=== PATIENT | female | born 1990 | race American Indian/Alaskan Native ===

== ENCOUNTER 2016-12-23 16:37 | Emergency (ER) | payer MEDICAID ==
[2016-12-23 16:38] VITALS: BMI 26.6
[2016-12-23 17:03] VITALS: RESP 18; TEMP 97.6; O2SAT 99
--- NOTE | 2016-12-23 19:33 | ED PDOC ---
Arrival/HPI - General Chief Complaint: Abdominal Pain Time Seen by Provider: 12/23/16 16:49 - History of Present Illness Narrative History of Present Illness (Text): 12/23/16 19:49 Patient c/o menstrual cramps starting this morning. Patient sts today is the first day of her menstrual period. Patient sts she usually has menstrual cramps , but today her pain is worse then before. She took 1 tab of OTC Ibuprofen earlier today without help. Patient denies fever/nausea/vomiting/diarrhea/ dysuria. Past Medical History - Provider Review Nursing Documentation Reviewed: Yes - Past History Past History: No Previous - Psychiatric Hx Substance Use: No - Anesthesia Hx Anesthesia: No Hx Anesthesia Reactions: No Hx Malignant Hyperthermia: No Family/Social History - Physician Review Nursing Documentation Reviewed: Yes Family/Social History: Unknown Family HX Smoking Status: Never Smoked Hx Alcohol Use: No Hx Substance Use: No Allergies/Home Meds Allergies/Adverse Reactions: Allergies amoxicillin Allergy (Verified 08/06/15 18:44) RASH methsuximide Allergy (Verified 08/06/15 18:44) RASH Review of Systems - Physician Review All systems were reviewed & negative as marked: Yes - Review of Systems Gastrointestinal: absent: Diarrhea, Nausea, Vomiting Genitourinary Female: Other (pelvic cramps) Physical Exam Vital Signs Reviewed: Yes Vital Signs Temp Pulse Resp BP Pulse Ox 12/23/16 19:47 73 18 120/71 99 12/23/16 17:59 69 18 115/69 99 12/23/16 16:46 97.6 F 74 18 117/72 99 Appearance: Positive for: Well-Appearing, Non-Toxic, Uncomfortable Pain Distress: None Mental Status: Positive for: Alert and Oriented X 3 - Systems Exam Head: Present: Atraumatic, Normocephalic Respiratory/Chest: Present: Clear to Auscultation. No: Accessory Muscle Use Cardiovascular: Present: Regular Rate and Rhythm Abdomen: Present: Tenderness (suprapubic). No: Distention, Peritoneal Signs, Rebound, Guarding Back: Present: Normal Inspection. No: CVA Tenderness Upper Extremity: Present: Normal ROM Lower Extremity: Present: Normal Inspection, Normal ROM Psychiatric: Present: Alert, Oriented x 3 Medical Decision Making ED Course and Treatment: 12/23/16 19:54 UCG negative in ED, Toradol IM ordered. On re-evaluation she feels better and is stable to be d/c home with OBGYN follow up. - Lab Interpretations Lab Results: Lab Results 12/23/16 18:45: Urine HCG, Qual Negative - Medication Orders Current Medication Orders: Discontinued Medications Acetaminophen (Tylenol 325mg Tab) 650 mg PO STAT STA Stop: 12/23/16 18:44 Ketorolac Tromethamine (Toradol) Confirm Administered Dose 60 mg .ROUTE .STK- MED ONE Stop: 12/23/16 18:59 Last Admin: 12/23/16 19:45 Dose: Ketorolac Tromethamine (Toradol) 60 mg IM STAT STA Stop: 12/23/16 18:59 Last Admin: 12/23/16 19:00 Dose: 60 mg Disposition/Present on Arrival - Present on Arrival Any Indicators Present on Arrival: No History of DVT/PE: No History of Uncontrolled Diabetes: No Urinary Catheter: No History of Decub. Ulcer: No History Surgical Site Infection Following: None - Disposition Have Diagnosis and Disposition been Completed?: Yes Diagnosis: Menstrual cramps Disposition: HOME/ ROUTINE Disposition Time: 19:31 Patient Plan: Discharge Condition: STABLE Discharge Instructions (ExitCare): Dysmenorrhea (ED) Additional Instructions: Follow up with OBGYN within 2-3 days. Return to ED if feel worse. Prescriptions: Acetaminophen/Pyrilamine/Caff [Midol Complete Caplet] 1 each PO .Q4-6 H #30 tablet Referrals: Kely Zarate MD [Primary Care Provider] - Follow up with primary Forms: [employer] (Setswana)
[2016-12-23 19:49] VITALS: BP 120/71; PULSE 73
== END 2016-12-23 19:45 | disposition home or self-care (01) ==
LOC: ED 16:37
DX: N94.6 Dysmenorrhea, unspecified (principal)
CPT/HCPCS: 84703; 96372; 99283; J1885

== ENCOUNTER 2016-12-30 22:43 | Emergency (ER) | payer MEDICAID ==
[2016-12-30 22:58] VITALS: BMI 27.8
--- NOTE | 2016-12-30 23:29 | ED PDOC ---
Arrival/HPI <Braxton Serra - Last Filed: 12/31/16 00:55> - General Historian: Patient - History of Present Illness Time/Duration: 24 hours Symptom Onset: Sudden Symptom Course: Unchanged Quality: Unable to Describe Severity Level: 8 <RaysaStanton hamlin - Last Filed: 12/31/16 02:00> - General Chief Complaint: Female Genitourinary Time Seen by Provider: 12/30/16 22:56 - History of Present Illness Narrative History of Present Illness (Text): 12/30/16 23:26 This is a 26 year old female with no significant PMHx complaining of dysuria. Patient states that this began earlier today. Patient is unable to describe the pain but states that it is 8/10 and only experienced with urination. Patient also complaining of urinary frequency, hematuria, and suprapubic tenderness. Patient denies vaginal discharge or bleeding. LMP was last week. Patient denies fevers, chills, chest pain, dyspnea, abdominal pain, n/v/c/d. (Stanton Styles) Past Medical History - Past History Past History: No Previous - Psychiatric Hx Substance Use: No - Anesthesia Hx Anesthesia: No Hx Anesthesia Reactions: No Hx Malignant Hyperthermia: No <Stanton Styles - Last Filed: 12/31/16 02:00> Family/Social History Family/Social History: No Known Family HX Smoking Status: Never Smoked Hx Alcohol Use: No Hx Substance Use: No <Stanton Styles - Last Filed: 12/31/16 02:00> Allergies/Home Meds <PonceBraxton - Last Filed: 12/31/16 00:55> <Stanton Styles - Last Filed: 12/31/16 02:00> Allergies/Adverse Reactions: Allergies amoxicillin Allergy (Verified 08/06/15 18:44) RASH methsuximide Allergy (Verified 08/06/15 18:44) RASH Review of Systems - Review of Systems Constitutional: Normal. absent: Fevers Eyes: Normal ENT: Normal Respiratory: Normal. absent: SOB Cardiovascular: Normal. absent: Chest Pain Gastrointestinal: Normal. absent: Abdominal Pain, Constipation, Diarrhea, Nausea, Vomiting Genitourinary Female: Dysuria, Frequency, Hematuria, Other (suprapubic tenderness) Musculoskeletal: Normal Skin: Normal Neurological: Normal Endocrine: Normal Hemo/Lymphatic: Normal <García Stylesa Deb - Last Filed: 12/31/16 02:00> Physical Exam Vital Signs Reviewed: Yes Temperature: Afebrile Blood Pressure: Normal Pulse: Tachycardic Respiratory Rate: Normal Appearance: Positive for: Well-Appearing Pain Distress: None Mental Status: Positive for: Alert and Oriented X 3 - Systems Exam Head: Present: Atraumatic, Normocephalic Pupils: Present: PERRL Extroacular Muscles: Present: EOMI Conjunctiva: Present: Normal Mouth: Present: Moist Mucous Membranes Neck: Present: Normal Range of Motion Respiratory/Chest: Present: Clear to Auscultation, Good Air Exchange. No: Accessory Muscle Use Cardiovascular: Present: Regular Rate and Rhythm, Normal S1, S2 Abdomen: Present: Normal Bowel Sounds, Other (suprapubic tenderness). No: Tenderness, Distention Back: Present: Normal Inspection. No: CVA Tenderness, Midline Tenderness Upper Extremity: Present: Normal Inspection, NORMAL PULSES. No: Edema Lower Extremity: Present: Normal Inspection, NORMAL PULSES. No: Edema, CALF TENDERNESS Neurological: Present: GCS=15, CN II-XII Intact Skin: Present: Warm, Dry, Normal Color. No: Rashes Psychiatric: Present: Alert, Oriented x 3 <Stanton Styles - Last Filed: 12/31/16 02:00> Vital Signs Temp Pulse Resp BP Pulse Ox 12/31/16 01:33 79 17 139/77 99 12/31/16 00:56 98.5 F 91 H 17 139/77 100 12/30/16 22:58 98.1 F 91 H 16 132/87 97 Medical Decision Making - Lab Interpretations I have reviewed the lab results: Yes <Braxton Serra - Last Filed: 12/31/16 00:55> <Stanton Styles - Last Filed: 12/31/16 02:00> ED Course and Treatment: Impression: Pt seen and evaluated with medical assistant cardiology. Pt presented complaining of dysuria today with urinary frequency and hematuria. Aware and agrees with HPI, clinical findings, plan, and management. Plan: -- Labs -- UA -- Reassess and disposition (Braxton Serra) 12/30/16 23:33 CBC, CMP, UA, Urine 12/31/16 01:56 Patient discharged with prescriptions for Cipro and Pyridium for her UTI and instructed to follow up with primary doctor. (Stanton Styles) - Lab Interpretations Lab Results: 12/30/16 23:53 12/30/16 23:53 Lab Results 12/30/16 23:53: Sodium 140, Potassium 4.2, Chloride 104, Carbon Dioxide 24, Anion Gap 16, BUN 9, Creatinine 0.8, Est GFR ( Amer) > 60, Est GFR (Non- Af Amer) > 60, Random Glucose 91, Calcium 9.1, Total Bilirubin 0.5, AST 35, ALT 28, Alkaline Phosphatase 90, Total Protein 7.5, Albumin 4.3, Globulin 3.3, Albumin/Globulin Ratio 1.3 12/30/16 23:53: WBC 11.7 H D, RBC 4.50, Hgb 13.7, Hct 39.6, MCV 88.0, MCH 30.4, MCHC 34.6, RDW 11.9, Plt Count 235, MPV 11.2 H, Gran % 72.1 H, Lymph % (Auto) 20.2 L, [place] % (Auto) 7.1 H, Eos % (Auto) 0.4 L, Baso % (Auto) 0.2, Gran # 8.41 H, Lymph # 2.4, [place] # 0.8 H, Eos # 0.1, Baso # 0.02 12/30/16 23:27: Urine Color Brown, Urine Appearance Cloudy, Urine pH 6.5, Ur Specific [place] 1.025, Urine Protein >=300 H, Urine Glucose (UA) Negative, Urine Ketones 15 H, Urine Blood Large H, Urine Nitrate Positive H, Urine Bilirubin Large H, Urine Urobilinogen 2.0 H, Ur Leukocyte Esterase Moderate H, Urine RBC 2 - 5, Urine WBC Tntc, Ur Epithelial Cells 0 - 2, Urine Bacteria Mod - Medication Orders Current Medication Orders: Discontinued Medications Ciprofloxacin (Cipro) 500 mg PO ONCE STA PRN Reason: Protocol Stop: 12/31/16 00:38 Last Admin: 12/31/16 00:56 Dose: 500 mg Phenazopyridine HCl (Pyridium) 200 mg PO STAT STA Stop: 12/31/16 00:38 Last Admin: 12/31/16 00:56 Dose: 200 mg Disposition/Present on Arrival <Braxton Serra - Last Filed: 12/31/16 00:55> - Present on Arrival Any Indicators Present on Arrival: No History of DVT/PE: No History of Uncontrolled Diabetes: No Urinary Catheter: No History of Decub. Ulcer: No History Surgical Site Infection Following: None - Disposition Have Diagnosis and Disposition been Completed?: Yes Disposition Time: 01:15 <Stanton Styles - Last Filed: 12/31/16 02:00> - Disposition Diagnosis: Urinary tract infection Disposition: HOME/ ROUTINE Condition: STABLE Additional Instructions: Take the antibiotic Ciprofloxacin 500 mg by mouth twice a day for 7 days. Take Pyridium 200 mg by mouth three times a day for 2 days. Please follow up with your primary doctor within 1 week of discharge. Return to the emergency room if new or worsening symptoms. Prescriptions: Ciprofloxacin [Cipro] 500 mg PO BID #14 tab Phenazopyridine HCl [Pyridium] 200 mg PO TID #6 tablet Referrals: Kely Zarate MD [Primary Care Provider] - Follow up with primary Forms: [employer] (Turkish)
[2016-12-30 23:36] LABS: PH,URINE 6.5 (4.7-8.0); URINE BILIRUBIN LARGE (NEGATIVE); URINE BLOOD LARGE (NEGATIVE); URINE GLUCOSE (UA) NEGATIVE (NEGATIVE); URINE KETONE 15 mg/dL (NEGATIVE); URINE LEUKOCYTE ESTERASE MODERATE Leu/uL (NEGATIVE); URINE PROTEIN >=300 mg/dL (<30 mg/dL)
[2016-12-30 23:38] LABS: URINE APPEARANCE CLOUDY (CLEAR); URINE COLOR BROWN (YELLOW)
[2016-12-30 23:47] LABS: URINE EPITHELIAL CELLS 0 - 2 /hpf (0-5); URINE WBC TNTC /hpf (0-6)
[2016-12-30 23:48] LABS: URINE BACTERIA MOD (NEG)
[2016-12-31 00:26] LABS: BASO # 0.02 K/mm3 (0.0-2.0); BASO % 0.2 % (0.0-3.0); EOS # 0.1 (0.0-0.7); EOS % 0.4 % (1.5-5.0); GRAN # 8.41 (1.4-6.5); GRAN % 72.1 % (50.0-68.0); HEMATOCRIT 39.6 % (36.0-48.0); LYMPH # 2.4 (1.2-3.4); LYMPH % 20.2 % (22.0-35.0); MEAN CORPUSCULAR HEMOGLOBIN 30.4 pg (25.0-35.0); MEAN CORPUSCULAR HGB CONC 34.6 g/dl (31.0-37.0); MEAN PLATELET VOLUME 11.2 fl (7.0-11.0); MONO # 0.8 (0.1-0.6); MONO % 7.1 % (1.0-6.0); RED CELL DISTRIBUTION WIDTH 11.9 % (11.5-14.5); WHITE BLOOD COUNT 11.7 10^3/ul (4.5-11.0)
[2016-12-31 00:44] LABS: ALB/GLOB RATIO 1.3 (1.1-1.8); ALKALINE PHOSPHATASE 90 U/L (38-126); ALT/SGPT 28 U/L (7-56); AST/SGOT 35 U/L (14-36); BILIRUBIN,TOTAL 0.5 mg/dL (0.2-1.3); BLOOD UREA NITROGEN 9 mg/dL (7-21); CALCIUM 9.1 mg/dL (8.4-10.5); CARBON DIOXIDE 24 mmol/L (21-33); CHLORIDE 104 mmol/L (98-107); GFR AFRICAN-AMERICAN > 60; GLUCOSE,RANDOM 91 mg/dL (70-110); POTASSIUM 4.2 mmol/L (3.6-5.0); SODIUM 140 mmol/L (132-148); TOTAL PROTEIN 7.5 g/dL (5.8-8.3)
[2016-12-31 00:57] VITALS: BP 139/77; RESP 17; TEMP 98.5
[2016-12-31 01:34] VITALS: PULSE 79; O2SAT 99
== END 2016-12-31 01:34 | disposition home or self-care (01) ==
LOC: ED 22:43
DX: N39.0 Urinary tract infection, site not specified (principal)

== ENCOUNTER 2018-02-05 22:36 | Emergency (ER) | payer SELFPAY ==
[2018-02-05 22:37] VITALS: BMI 27.8
[2018-02-05 23:00] VITALS: RESP 17
--- NOTE | 2018-02-05 23:19 | ED PDOC ---
Arrival/HPI - General Chief Complaint: ENT Problem Time Seen by Provider: 02/05/18 22:43 Historian: Patient - History of Present Illness Narrative History of Present Illness (Text): 02/05/18 23:16 27 year old female, with no significant past medical history, presents to the emergency department complaining of sore throat discomfort associated with occasional dry cough for the past couple of days. Patient states she has some di scomfort to her chest when coughing. Patient denies any fever, chills, shortness of breath, nausea, vomiting, diarrhea, urinary symptoms, back pain, neck pain, headache, dizziness, or any other complaints. PMD: oCrinna Zarate Time/Duration: Other (couple days) Symptom Onset: Gradual Symptom Course: Unchanged Activities at Onset: Light Context: Home Past Medical History - Provider Review Nursing Documentation Reviewed: Yes - Past History Past History: No Previous - Infectious Disease Hx of Infectious Diseases: None - Cardiac Hx Cardiac Disorders: No - Psychiatric Hx Substance Use: No - Anesthesia Hx Anesthesia: No Hx Anesthesia Reactions: No Hx Malignant Hyperthermia: No Family/Social History - Physician Review Nursing Documentation Reviewed: Yes Family/Social History: No Known Family HX Smoking Status: Never Smoked Hx Alcohol Use: No Hx Substance Use: No Allergies/Home Meds Allergies/Adverse Reactions: Allergies amoxicillin Allergy (Verified 02/05/18 22:45) RASH methsuximide Allergy (Verified 02/05/18 22:45) RASH Review of Systems - Physician Review All systems were reviewed & negative as marked: Yes - Review of Systems Constitutional: absent: Fevers, Other (chills) ENT: Sore Throat Respiratory: Cough (with chest discomfrot when coughing). absent: SOB Gastrointestinal: absent: Diarrhea, Nausea, Vomiting Genitourinary Female: absent: Dysuria, Frequency, Hematuria Musculoskeletal: absent: Back Pain, Neck Pain Neurological: absent: Headache, Dizziness Physical Exam Vital Signs Reviewed: Yes Vital Signs Temp Pulse Resp BP Pulse Ox 02/05/18 22:59 98.2 F 80 17 138/97 H 98 Temperature: Afebrile Blood Pressure: Normal Pulse: Regular Respiratory Rate: Normal Appearance: Positive for: Well-Appearing, Non-Toxic, Comfortable Pain Distress: None Mental Status: Positive for: Alert and Oriented X 3 - Systems Exam Head: Present: Atraumatic, Normocephalic Pupils: Present: PERRL Extroacular Muscles: Present: EOMI Conjunctiva: Present: Normal Mouth: Present: Moist Mucous Membranes Pharnyx: Present: ERYTHEMA (Posterior pharnyx ). No: EXUDATE Neck: Present: Normal Range of Motion Respiratory/Chest: Present: Clear to Auscultation, Good Air Exchange. No: Respiratory Distress, Accessory Muscle Use Cardiovascular: Present: Regular Rate and Rhythm, Normal S1, S2. No: Murmurs Abdomen: No: Tenderness, Distention, Peritoneal Signs Back: Present: Normal Inspection Upper Extremity: Present: Normal Inspection. No: Cyanosis, Edema Lower Extremity: Present: Normal Inspection. No: Edema Neurological: Present: GCS=15, CN II-XII Intact, Speech Normal Skin: Present: Warm, Dry, Normal Color. No: Rashes Psychiatric: Present: Alert, Oriented x 3, Normal Insight, Normal Concentration Medical Decision Making ED Course and Treatment: 02/05/18 23:18 Impression: 27 year old female presents complaining of sore throat discomfort associated with occasional dry cough and discomfort to chest when coughing for the past couple of days. Plan: -- Chest X-ray -- Reassess and disposition Progress Notes: 02/05/18 23:31 CXR Impression: As read by me, no acute process. 02/05/18 23:49 On re-evaluation, patient is in no acute distress. I have discussed the results and plan with the patient, who expresses understanding. Patient in agreement with plan to be discharged home. Patient is stable for discharge. Patient was instructed to follow up with physician or return if symptoms worsen or new concerning symptoms arise. - RAD Interpretation Radiology Orders: 02/05/18 23:01 CHEST TWO VIEWS (PA/LAT) [RAD] Stat - Scribe Statement The provider has reviewed the documentation as recorded by the Scribe Isak Clayton Provider Scribe Attestation: All medical record entries made by the Scribe were at my direction and personally dictated by me. I have reviewed the chart and agree that the record accurately reflects my personal performance of the history, physical exam, medical decision making, and the department course for this patient. I have also personally directed, reviewed, and agree with the discharge instructions and disposition. Disposition/Present on Arrival - Present on Arrival Any Indicators Present on Arrival: No History of DVT/PE: No History of Uncontrolled Diabetes: No Urinary Catheter: No History of Decub. Ulcer: No History Surgical Site Infection Following: None - Disposition Have Diagnosis and Disposition been Completed?: Yes Diagnosis: Pharyngitis, Bronchitis Disposition: HOME/ ROUTINE Disposition Time: 23:34 Patient Plan: Discharge Patient Problems: Current Active Problems Problem Status Onset Bronchitis Acute Pharyngitis Acute Condition: GOOD Discharge Instructions (ExitCare): Acute Bronchitis, Adult (DC), Sore Throat, Adult (DC) Additional Instructions: Drink plenty of fluids/take meds as prescribed/follow up with your doctor this week Prescriptions: Levofloxacin [Levaquin] 500 mg PO DAILY #7 tablet Benzonatate [Tessalon Perles] 100 mg PO TID PRN #21 sgl PRN Reason: Cough Referrals: Kely Zarate MD [Primary Care Provider] - Follow up with primary Forms: [employer] (Portuguese)
[2018-02-05 23:50] VITALS: BP 132/89; PULSE 78; TEMP 98.1; O2SAT 99
--- NOTE | 2018-02-06 10:33 | RAD ---
Date of service: 02/05/2018 HISTORY: Cough COMPARISON: No prior. TECHNIQUE: Chest PA and lateral FINDINGS: LUNGS: No active pulmonary disease. PLEURA: No significant pleural effusion identified. No pneumothorax apparent. CARDIOVASCULAR: No atherosclerotic calcification present Normal. OSSEOUS STRUCTURES: No significant abnormalities. VISUALIZED UPPER ABDOMEN: Normal. OTHER FINDINGS: None. IMPRESSION: No active disease.
== END 2018-02-05 23:49 | disposition home or self-care (01) ==
LOC: ED 22:36
DX: J02.9 Acute pharyngitis, unspecified (principal); J40 Bronchitis, not specified as acute or chronic

== ENCOUNTER 2018-09-18 17:06 | Emergency (ER) | payer MEDICAID ==
[2018-09-18 17:49] VITALS: TEMP 97.9; BMI 32.9
[2018-09-18] MEDS ORDERED: Sodium Chloride 0.9% 1,000 ML IV STA (17:49)
[2018-09-18 19:09] LABS: URINE BILIRUBIN NEGATIVE (NEGATIVE); URINE BLOOD NEGATIVE (NEGATIVE); URINE GLUCOSE (UA) NEGATIVE (NEGATIVE); URINE LEUKOCYTE ESTERASE NEGATIVE Leu/uL (NEGATIVE); URINE PROTEIN NEGATIVE mg/dL (<30 mg/dL); URINE UROBILINOGEN 0.2 E.U./dL (<1 E.U./dL)
[2018-09-18 19:11] LABS: BASO # 0.01 K/mm3 (0.0-2.0); BASO % 0.2 % (0.0-3.0); EOS % 0.6 % (1.5-5.0); HEMOGLOBIN 14.4 g/dL (12.0-16.0); LYMPH # 2.3 (1.2-3.4); LYMPH % 35.7 % (22.0-35.0); MEAN CELL VOLUME 88.6 fl (80.0-105.0); MEAN CORPUSCULAR HEMOGLOBIN 29.4 pg (25.0-35.0); MEAN CORPUSCULAR HGB CONC 33.2 g/dl (31.0-37.0); MEAN PLATELET VOLUME 11.7 fl (7.0-11.0); MONO # 0.4 (0.1-0.6); MONO % 6.4 % (1.0-6.0); RBC 4.9 10^6/uL (3.5-6.1); RED CELL DISTRIBUTION WIDTH 12.6 % (11.5-14.5); WHITE BLOOD COUNT 6.4 10^3/uL (4.5-11.0)
[2018-09-18 19:13] LABS: URINE APPEARANCE CLEAR (CLEAR); URINE COLOR LIGHT YELLOW (YELLOW)
[2018-09-18 19:14] LABS: HCG,QUALITATIVE URINE NEGATIVE (NEGATIVE)
--- NOTE | 2018-09-18 19:15 | ED PDOC ---
Arrival/HPI <Rcihie Avelar A - Last Filed: 09/18/18 22:31> - General Historian: Patient - History of Present Illness Narrative History of Present Illness (Text): 27 y/o female with no significant PMH presents to the ED c/o abdominal pain, nausea, vomiting, and lightheadedness x 1 day. Lightheadedness is worst with changes in position, but occasionally is described as room spinning. Admits to 4 episodes of nonbloody, nonbilious emesis today, last in the triage room. Abdominal pain is dull, generalized, worst epigastric. No recent travel or sick contacts. Denies fever, chills, diarrhea, constipation, hematemesis, cough, congestion, vision changes, headache, ear pain, urinary symptoms, back pain, SOB, chest pain, vaginal bleeding or discharge, or any other associated symptoms. <Dunia Moore - Last Filed: 09/19/18 20:51> - General Chief Complaint: Abdominal Pain Time Seen by Provider: 09/18/18 17:22 Past Medical History - Provider Review Nursing Documentation Reviewed: Yes - Past History Past History: No Previous - Infectious Disease Hx of Infectious Diseases: None - Cardiac Hx Cardiac Disorders: No - Psychiatric Hx Substance Use: No - Anesthesia Hx Anesthesia: No Hx Anesthesia Reactions: No Hx Malignant Hyperthermia: No <Dunia Moore - Last Filed: 09/19/18 20:51> Family/Social History - Physician Review Nursing Documentation Reviewed: Yes Family/Social History: No Known Family HX Smoking Status: Never Smoked Hx Alcohol Use: No Hx Substance Use: No <Dunia Moore - Last Filed: 09/19/18 20:51> Allergies/Home Meds <Richie Avelar A - Last Filed: 09/18/18 22:31> <Dunia Moore - Last Filed: 09/19/18 20:51> Allergies/Adverse Reactions: Allergies amoxicillin Allergy (Verified 09/18/18 17:48) RASH methsuximide Allergy (Verified 09/18/18 17:48) RASH Review of Systems - Review of Systems Constitutional: Normal. absent: Fevers Eyes: Normal. absent: Vision Changes ENT: Normal. absent: Sore Throat, Sinus Congestion Respiratory: Normal. absent: SOB, Cough Cardiovascular: Normal. absent: Chest Pain, Palpitations, Syncope Gastrointestinal: Abdominal Pain, Nausea, Vomiting. absent: Stool Changes, Constipation, Diarrhea, Hematemesis Genitourinary Female: Normal. absent: Dysuria, Frequency, Vaginal Bleeding Musculoskeletal: Normal. absent: Back Pain, Neck Pain Skin: Normal. absent: Rash Neurological: Dizziness. absent: Headache <Dunia Moore - Last Filed: 09/19/18 20:51> Physical Exam Vital Signs Temp Pulse Resp BP Pulse Ox 09/18/18 20:00 71 16 116/70 99 09/18/18 17:07 97.9 F 95 H 18 132/96 H 96 <Diru,Happiness A - Last Filed: 09/18/18 22:31> Vital Signs Reviewed: Yes Vital Signs Temp Pulse Resp BP Pulse Ox 09/18/18 17:07 97.9 F 95 H 18 132/96 H 96 Temperature: Afebrile Blood Pressure: Hypertensive Pulse: Regular Respiratory Rate: Normal Appearance: Positive for: Well-Appearing, Non-Toxic, Comfortable Pain Distress: None Mental Status: Positive for: Alert and Oriented X 3 - Systems Exam Head: Present: Atraumatic, Normocephalic Pupils: Present: PERRL Extroacular Muscles: Present: EOMI Conjunctiva: Present: Normal Mouth: Present: Moist Mucous Membranes Neck: Present: Normal Range of Motion Respiratory/Chest: Present: Clear to Auscultation, Good Air Exchange. No: Respiratory Distress, Accessory Muscle Use Cardiovascular: Present: Regular Rate and Rhythm, Normal S1, S2, Peripheal Pulses Present Abdomen: Present: Tenderness (epigastric, mild), Normal Bowel Sounds. No: Distention, Peritoneal Signs Back: Present: Normal Inspection. No: CVA Tenderness Upper Extremity: Present: Normal Inspection, Normal ROM. No: Cyanosis, Edema Lower Extremity: Present: Normal Inspection, Normal ROM. No: Edema Neurological: Present: GCS=15, CN II-XII Intact, Speech Normal, Motor Func Grossly Intact, Normal Sensory Function, Normal Cerebellar Funct, Gait Normal Skin: Present: Warm, Dry, Normal Color. No: Rashes Lymphatic: No: Cervical Adenopathy Psychiatric: Present: Alert, Oriented x 3, Normal Insight, Normal Concentration, Normal Affect, Normal Mood <Dunia Moore - Last Filed: 09/19/18 20:51> Medical Decision Making - Lab Interpretations Lab Results: PT 13.2 SECONDS (9.4-12.5) H 09/18/18 18:45 INR 1.19 09/18/18 18:45 APTT 37.3 Seconds (26.9-38.3) 09/18/18 18:45 Total Bilirubin 0.7 mg/dL (0.2-1.3) 09/18/18 17:49 AST 90 U/L (14-36) H D 09/18/18 17:49 ALT 120 U/L (7-56) H 09/18/18 17:49 Alkaline Phosphatase 135 U/L (38-126) H D 09/18/18 17:49 Total Protein 8.1 g/dL (5.8-8.3) 09/18/18 17:49 Albumin 4.7 g/dL (3.0-4.8) 09/18/18 17:49 Globulin 3.4 gm/dL 09/18/18 17:49 Albumin/Globulin Ratio 1.4 (1.1-1.8) 09/18/18 17:49 Lipase 78 U/L (23-300) 09/18/18 17:49 Urine Color Light yellow (YELLOW) 09/18/18 18:45 Urine Appearance Clear (CLEAR) 09/18/18 18:45 Urine pH 7.0 (4.7-8.0) 09/18/18 18:45 Ur Specific Muir 1.010 (1.005-1.035) 09/18/18 18:45 Urine Protein Negative mg/dL (<30 mg/dL) 09/18/18 18:45 Urine Glucose (UA) Negative mg/dL (NEGATIVE) 09/18/18 18:45 Urine Ketones Negative mg/dL (NEGATIVE) 09/18/18 18:45 Urine Blood Negative (NEGATIVE) 09/18/18 18:45 Urine Nitrate Negative (NEGATIVE) 09/18/18 18:45 Urine Bilirubin Negative (NEGATIVE) 09/18/18 18:45 Urine Urobilinogen 0.2 E.U./dL (<1 E.U./dL) 09/18/18 18:45 Ur Leukocyte Esterase Negative Samuel/uL (NEGATIVE) 09/18/18 18:45 Urine HCG, Qual Negative (NEGATIVE) 09/18/18 18:45 Urine HCG, Qual Negative (NEGATIVE) 09/18/18 18:45 - RAD Interpretation Radiology Orders: 09/18/18 17:50 ABD & PELVIS IV CONTRAST ONLY [CT] Stat 09/18/18 19:54 ABDOMEN COMPLETE [US] Stat - Medication Orders Current Medication Orders: Discontinued Medications Famotidine (Pepcid) 20 mg IVP STAT STA Stop: 09/18/18 17:50 Last Admin: 09/18/18 18:51 Dose: 20 mg IVP Administration Document 09/18/18 18:51 CD (Rec: 09/18/18 18:51 CD [facility] [id number]) Charges for Administration # of IVP Administrations 1 Sodium Chloride (Sodium Chloride 0.9%) 1,000 mls @ 1,000 mls/hr IV .Q1H STA Stop: 09/18/18 18:48 Last Admin: 09/18/18 18:52 Dose: 1,000 mls/hr eMAR Start Stop Document 09/18/18 18:52 CD (Rec: 09/18/18 18:53 CD [facility] [id number]) Intravenous Solution Start Date 09/18/18 Start Time 18:53 End Date 09/18/18 End time 19:53 Total Infusion Time 60 Ketorolac Tromethamine (Toradol) 15 mg IVP STAT STA Stop: 09/18/18 17:50 Last Admin: 09/18/18 18:50 Dose: 15 mg MAR Pain Assessment Document 09/18/18 18:50 CD (Rec: 09/18/18 18:51 CD [facility] [id number]) Pain Reassessment Is this a pain reassessment? No Sleep Is patient sleeping during reassessment? No Presence of Pain Presence of Pain Yes Pain Scale Used Protocol: PSCALES Pain Scale Used Numeric Location Upper or Lower Lower Pain Location Body Site Abdomen Description Description Intermittent Intensity of Pain at present 7 Pain Behavior Moaning Guarding Aggravating Factors None Alleviating Factors/Management Medication Techniques Alleviating Factors Inactivity IVP Administration Document 09/18/18 18:50 CD (Rec: 09/18/18 18:51 CD [facility] [id number]) Charges for Administration # of IVP Administrations 1 Meclizine HCl (Antivert) 25 mg PO STAT STA Stop: 09/18/18 18:06 Last Admin: 09/18/18 18:50 Dose: 25 mg Ondansetron HCl (Zofran Inj) 4 mg IVP STAT STA Stop: 09/18/18 17:50 Last Admin: 09/18/18 18:51 Dose: 4 mg IVP Administration Document 09/18/18 18:51 CD (Rec: 09/18/18 18:51 CD [facility] [id number]) Charges for Administration # of IVP Administrations 1 <Richie Avelar - Last Filed: 09/18/18 22:31> ED Course and Treatment: 09/18/18 20:24 Initial Plan: * Labs * UA, POC preg * CT Abd/Pelvis * IVF, Pepcid, Zofran, Toradol * Meclizine POC preg negative Bloodwork reviewed, shows elevated LFTs. Otherwise unremarkable. Urine reviewed, unremarkable, no UTI 20:20 On re-evaluation, patient reports resolution of nausea and abdominal pain, with improvement in lightheadedness. 20:45 Patient care endorsed to AMRIK Avelar pending US results, reassess and disposition. Pt resting comfortably in stretcher with stable vitals at this time. Pt updated in change in provider. - Lab Interpretations Lab Results: Urine Color Light yellow (YELLOW) 09/18/18 18:45 Urine Appearance Clear (CLEAR) 09/18/18 18:45 Urine pH 7.0 (4.7-8.0) 09/18/18 18:45 Ur Specific Muir 1.010 (1.005-1.035) 09/18/18 18:45 Urine Protein Negative mg/dL (<30 mg/dL) 09/18/18 18:45 Urine Glucose (UA) Negative mg/dL (NEGATIVE) 09/18/18 18:45 Urine Ketones Negative mg/dL (NEGATIVE) 09/18/18 18:45 Urine Blood Negative (NEGATIVE) 09/18/18 18:45 Urine Nitrate Negative (NEGATIVE) 09/18/18 18:45 Urine Bilirubin Negative (NEGATIVE) 09/18/18 18:45 Urine Urobilinogen 0.2 E.U./dL (<1 E.U./dL) 09/18/18 18:45 Ur Leukocyte Esterase Negative Samuel/uL (NEGATIVE) 09/18/18 18:45 Urine HCG, Qual Negative (NEGATIVE) 09/18/18 18:45 Urine HCG, Qual Negative (NEGATIVE) 09/18/18 18:45 09/18/18 18:45 09/18/18 17:49 Lab Results 09/18/18 18:45: Acetaminophen < 10.0 L 09/18/18 18:45: Urine Color Light yellow, Urine Appearance Clear, Urine pH 7.0, Ur Specific Muir 1.010, Urine Protein Negative, Urine Glucose (UA) Negative, Urine Ketones Negative, Urine Blood Negative, Urine Nitrate Negative, Urine Bilirubin Negative, Urine Urobilinogen 0.2, Ur Leukocyte Esterase Negative, Urine HCG, Qual Negative 09/18/18 18:45: PT 13.2 H, INR 1.19, APTT 37.3 09/18/18 18:45: WBC 6.4, RBC 4.90, Hgb 14.4, Hct 43.4, MCV 88.6, MCH 29.4, MCHC 33.2, RDW 12.6, Plt Count 231, MPV 11.7 H, Neut % (Auto) 57.1, Lymph % (Auto) 35.7 H, [place] % (Auto) 6.4 H, Eos % (Auto) 0.6 L, Baso % (Auto) 0.2, Lymph # (Auto) 2.3, [place] # (Auto) 0.4, Eos # (Auto) 0.0, Baso # (Auto) 0.01, Absolute Neuts (auto) 3.67 09/18/18 17:49: Sodium 140, Potassium 4.5, Chloride 107, Carbon Dioxide 21, Anion Gap 16, BUN 8, Creatinine 0.7, Est GFR ( Amer) > 60, Est GFR (Non- Af Amer) > 60, Random Glucose 98, Calcium 9.8, Magnesium 1.9, Total Bilirubin 0.7, AST 90 H D, ALT 120 H, Alkaline Phosphatase 135 H D, Total Protein 8.1, Albumin 4.7, Globulin 3.4, Albumin/Globulin Ratio 1.4, Lipase 78 I have reviewed the lab results: Yes - RAD Interpretation Narrative RAD Interpretations (Text): 09/18/18 21:12 CT Abd/Pelvis: FINDINGS: LUNG BASES: The lung bases appear clear. No pleural effusions are seen. LIVER: Unremarkable. GALLBLADDER AND BILE DUCTS: The gallbladder appears within normal limits. No radioopaque gallstones are seen. No biliary ductal dilatation is evident. PANCREAS: Unremarkable. SPLEEN: Unremarkable. ADRENAL GLANDS: Unremarkable. KIDNEYS, URETERS, AND BLADDER: The kidneys appear within normal limits. There is no hydronephrosis or hydroureter. No urinary calculi are seen. The urinary bladder appeared normal in size and configuration. STOMACH AND BOWEL: Unremarkable appearance of the stomach. No evidence of bowel obstruction. Mucosal wall thickening is seen involving the ilial small intestinal tract with fluid seen in its lumen thought compatible with ileitis. Infectious or inflammatory etiologies are thought most likely. No evidence suggesting colitis. APPENDIX: No evidence of acute appendicitis on CT examination. PERITONEUM: No free fluid. No free air. LYMPH NODES: No lymphadenopathy is evident. Multiple mesenteric lymph nodes are grouped in the right lower quadrant with at least 3 or more demonstrating a transverse axis measurement of 5.0 mm or greater. These findings are compatible with mesenteric adenitis. REPRODUCTIVE: Unremarkable as visualized. VASCULATURE: No evidence of abdominal aortic aneurysm. BONES: No aggressive appearing osseous lesion. No acute osseous pathology evident. IMPRESSION: 1. Evidence of ileitis. 2. Findings compatible with mesenteric adenitis. Electronically signed on Sep 18, 2018 9:02:21 PM EDT by: Thiago Purvis M.D., M.B.A., Certified By [employer] Trained MRI and CT Specialist Radiology Orders: 09/18/18 17:50 ABD & PELVIS IV CONTRAST ONLY [CT] Stat Licensed Real Estate Broker: Radiologist - Medication Orders Current Medication Orders: Discontinued Medications Famotidine (Pepcid) 20 mg IVP STAT STA Stop: 09/18/18 17:50 Last Admin: 09/18/18 18:51 Dose: 20 mg IVP Administration Document 09/18/18 18:51 CD (Rec: 09/18/18 18:51 CD [facility] [id number]) Charges for Administration # of IVP Administrations 1 Sodium Chloride (Sodium Chloride 0.9%) 1,000 mls @ 1,000 mls/hr IV .Q1H STA Stop: 09/18/18 18:48 Last Admin: 09/18/18 18:52 Dose: 1,000 mls/hr eMAR Start Stop Document 09/18/18 18:52 CD (Rec: 09/18/18 18:53 CD [facility] [id number]) Intravenous Solution Start Date 09/18/18 Start Time 18:53 End Date 09/18/18 End time 19:53 Total Infusion Time 60 Ketorolac Tromethamine (Toradol) 15 mg IVP STAT STA Stop: 09/18/18 17:50 Last Admin: 09/18/18 18:50 Dose: 15 mg MAR Pain Assessment Document 09/18/18 18:50 CD (Rec: 09/18/18 18:51 CD [facility] [id number]) Pain Reassessment Is this a pain reassessment? No Sleep Is patient sleeping during reassessment? No Presence of Pain Presence of Pain Yes Pain Scale Used Protocol: PSCALES Pain Scale Used Numeric Location Upper or Lower Lower Pain Location Body Site Abdomen Description Description Intermittent Intensity of Pain at present 7 Pain Behavior Moaning Guarding Aggravating Factors None Alleviating Factors/Management Medication Techniques Alleviating Factors Inactivity IVP Administration Document 09/18/18 18:50 CD (Rec: 09/18/18 18:51 CD [facility] [id number]) Charges for Administration # of IVP Administrations 1 Meclizine HCl (Antivert) 25 mg PO STAT STA Stop: 09/18/18 18:06 Last Admin: 09/18/18 18:50 Dose: 25 mg Ondansetron HCl (Zofran Inj) 4 mg IVP STAT STA Stop: 09/18/18 17:50 Last Admin: 09/18/18 18:51 Dose: 4 mg IVP Administration Document 09/18/18 18:51 CD (Rec: 09/18/18 18:51 CD [facility] [id number]) Charges for Administration # of IVP Administrations 1 - Transfer of Care Patient signed out to Dr:: AMRIK Avelar Pending Radiology Studies:: Ultrasound Report Other: Reassessment and Disposition <Dunia Moore - Last Filed: 09/19/18 20:51> Disposition/Present on Arrival - Present on Arrival Any Indicators Present on Arrival: No History of DVT/PE: No History of Uncontrolled Diabetes: No Urinary Catheter: No History of Decub. Ulcer: No History Surgical Site Infection Following: None - Disposition Have Diagnosis and Disposition been Completed?: Yes Disposition Time: 22:35 Patient Plan: Discharge <Richie Avelar - Last Filed: 09/18/18 22:31> - Present on Arrival Any Indicators Present on Arrival: No History of DVT/PE: No History of Uncontrolled Diabetes: No Urinary Catheter: No History of Decub. Ulcer: No History Surgical Site Infection Following: None - Disposition Have Diagnosis and Disposition been Completed?: No Disposition Time: 20:45 <Dunia Moore - Last Filed: 09/19/18 20:51> - Disposition Diagnosis: Mesenteric adenitis, Ileitis, Elevated LFTs Disposition: HOME/ ROUTINE Condition: STABLE Discharge Instructions (ExitCare): Colitis (DC) Additional Instructions: Follow up with your doctor Follow BLAND diet Return to ED for any new or worsening symptoms Prescriptions: Famotidine [Pepcid] 40 mg PO DAILY #10 tab Ondansetron ODT [Zofran ODT] 4 mg PO Q6 #6 odt Referrals: Kely Zarate MD [Primary Care Provider] - Follow up with primary Forms: [employer] ([place])
[2018-09-18 19:22] LABS: INR 1.19; PARTIAL THROMBOPLASTIN TIME 37.3 Seconds (26.9-38.3); PROTHROMBIN TIME 13.2 SECONDS (9.4-12.5)
[2018-09-18 19:24] LABS: ALB/GLOB RATIO 1.4 (1.1-1.8); ALBUMIN 4.7 g/dL (3.0-4.8); BLOOD UREA NITROGEN 8 mg/dL (7-21); CALCIUM 9.8 mg/dL (8.4-10.5); GFR NON-AFRICAN AMERICAN > 60; LIPASE 78 U/L (23-300)
[2018-09-18] MEDS ORDERED: Iodixanol 320 MG/ML 100 ML BOTTLE IV ONE (19:29)
[2018-09-18 19:41] LABS: ALT/SGPT 120 U/L (7-56); AST/SGOT 90 U/L (14-36)
[2018-09-19 00:20] VITALS: BP 118/72; PULSE 75; RESP 15; O2SAT 100
--- NOTE | 2018-09-19 09:14 | CT ---
Date of service: 09/18/2018 PROCEDURE: CT Abdomen and Pelvis with contrast HISTORY: Abdominal pain COMPARISON: None TECHNIQUE: CT scan of the abdomen and pelvis was performed after administration of intravenous contrast. Oral contrast was not administered. Coronal and sagittal reformatted images were obtained. Contrast dose: 100 mL Visipaque 320 Radiation dose: Total exam DLP = 737.96 mGy-cm. This CT exam was performed using one or more of the following dose reduction techniques: Automated exposure control, adjustment of the mA and/or kV according to patient size, and/or use of iterative reconstruction technique. FINDINGS: LOWER THORAX: The visualized lungs are clear. LIVER: Normal in size with homogeneous enhancement. No gross lesion or ductal dilatation. GALLBLADDER AND BILE DUCTS: Well distended. No calcified gallstones, wall thickening or pericholecystic fluid. PANCREAS: Normal in size with homogeneous enhancement. No gross lesion or ductal dilatation. SPLEEN: Normal in size and appearance. ADRENALS: No discrete nodule. KIDNEYS AND URETERS: Normal in size with homogeneous enhancement. No hydronephrosis. No solid mass. VASCULATURE: No aortic aneurysm. There are no aortic atherosclerotic calcifications or mural plaque present. BOWEL: Evaluation of the bowel is limited in the absence of oral contrast. There is fluid and mild mucosal enhancement in mildly dilated small bowel loops. There is also apparent mild circumferential mural thickening in the colon, most conspicuous in the transverse colon with associated mucosal enhancement. No bowel obstruction. APPENDIX: Normal appendix. PERITONEUM: No free fluid. No free air. LYMPH NODES: There are multiple subcentimeter mesenteric lymph nodes in the right lower quadrant BLADDER: Well distended and normal in appearance. REPRODUCTIVE: The uterus is normal in size. BONES: No acute fracture. Within normal limits for the patient's age. OTHER FINDINGS: None. IMPRESSION: 1. Findings are most compatible with nonspecific acute infectious/inflammatory enterocolitis, most conspicuous in the transverse colon. No evidence for bowel obstruction. 2. Reactive right lower quadrant mesenteric lymphadenopathy. A preliminary report was provided by [employer]. The final report is tagged to the PA review folder.
--- NOTE | 2018-09-19 11:42 | US ---
Date of service: 09/18/2018 HISTORY: RUQ COMPARISON: None. TECHNIQUE: Sonographic evaluation of the abdomen. FINDINGS: LIVER: Measures 17.2 cm. There is normal echogenicity of the liver parenchyma. No mass. No intrahepatic bile duct dilatation. GALLBLADDER: There are no gallstones, wall thickening or pericholecystic fluid. The sonographic Baker's sign is negative. COMMON BILE DUCT: Measures 4.9 mm. No stones. No dilatation. PANCREAS: Unremarkable as visualized. No mass. No ductal dilatation. RIGHT KIDNEY: Measures 10.5cm. Normal echogenicity. No calculus, mass, or hydronephrosis. LEFT KIDNEY: Measures 10.5cm. Normal echogenicity. No calculus, mass, or hydronephrosis. SPLEEN: Normal in size and contour. No mass. AORTA: No aneurysmal dilatation. IVC: Unremarkable. OTHER FINDINGS: None. IMPRESSION: Mild hepatomegaly. No cholelithiasis or biliary dilatation. A preliminary report was provided by [facility].
== END 2018-09-18 23:10 | disposition home or self-care (01) ==
LOC: ED 17:06
DX: I88.0 Nonspecific mesenteric lymphadenitis (principal); K52.9 Noninfective gastroenteritis and colitis, unspecified; R79.89 Other specified abnormal findings of blood chemistry
CPT/HCPCS: 74177; 76700; 80053; 80329; 81003; 81025; 83690; 83735; 84703; 85025; 85610; 85730; 86308; 96361; 96374; 96375; 99284; J1885; J2405; J7030; Q9967